=== PATIENT | female | born 1960 | race Hispanic/Latino ===

== ENCOUNTER 2017-08-20 06:00 | Observation (INO) | payer OTHER ==
[2017-08-19 15:40] VITALS: BP 112/70
[2017-08-19 15:43] LABS: BASOPHILS % (AUTO) 0.3 % (0.0-5.0); EOSINOPHILS % (AUTO) 1.7 % (0.0-8.0); HEMATOCRIT 38.1 % (36-48); LYMPHOCYTES % (AUTO) 22.6 % (21.0-51.0); MEAN CORPUSCULAR HEMOGLOBIN 29.2 pg (27.0-33.0); MEAN CORPUSCULAR HGB CONC 34.9 g/dL (32.0-36.0); MEAN CORPUSCULAR VOLUME 83.7 fL (79-99); NEUTROPHILS % (AUTO) 67.4 % (40.0-77.0); PLATELET COUNT (AUTO) 211 K/uL (130-400); RED BLOOD CELL COUNT(AUTO) 4.55 MIL/uL (4.00-5.50); RED CELL DISTRIBUTION WIDTH 14.7 % (11.0-15.5); WHITE BLOOD COUNT (AUTO) 8.7 K/uL (4.8-10.8)
[~2017-08-20] VITALS: Ht 165.1 cm; Wt 92.8 kg
[2017-08-20] VITALS (24 sets, daily range): BP systolic 115–157; BP diastolic 66–89
[~2017-08-20 06:00] MED LIST: AMIT10TA6 PO; BIOT10005 PO; CETI10TA57 PO; CHOL500051 PO; HYDR200T4 PO; HYDR25TA PO; LACTATED RINGERS 1000ML 1,000 ML IV SCH; LEVO100T12 PO; MONT10TA24 PO; OMEG1CAP67 PO
[2017-08-20] MEDS: CEFAZOLIN SODIUM 1 GM VIAL IVP SCH ×2 (08:30→09:10)
[2017-08-20] MEDS ORDERED: SCOPOLAMINE HYDROBROMIDE 1 EACH ADH..PATCH TD ONE (09:01)
[2017-08-20] MEDS ORDERED: LIDOCAINE PF 2% 5ML ABBOJECT ONE (09:06)
[2017-08-20] MEDS ORDERED: DEXAMETHASONE SOD PHOSPHATE 10MG/ML 1ML VIAL ONE (09:06)
[2017-08-20] MEDS ORDERED: PROPOFOL 10 MG/ML 20ML VIAL IV ONE (09:06)
[2017-08-20] MEDS ORDERED: FENTANYL CITRATE PF 50 MCG/1 ML 2ML VIAL ONE (09:06)
[2017-08-20] MEDS ORDERED: MIDAZOLAM HCL 1 MG/ML 2ML VIAL ONE (09:06)
[2017-08-20] MEDS ORDERED: GLYCOPYRROLATE 0.2 MG/ML 5 ML VIAL ONE (09:06)
[2017-08-20] MEDS ORDERED: PROMETHAZINE HCL 25 MG/ML 1ML AMPULE IM ONE (10:53)
[2017-08-20] MEDS ORDERED: MEPERIDINE-PF 25 MG/ML SYG ONE (11:05)
[2017-08-20] MEDS ORDERED: DOCUSATE SODIUM 100 MG CAP PO PRN (12:15)
[2017-08-20] MEDS ORDERED: PROMETHAZINE HCL 25 MG/ML 1ML AMPULE IM PRN ×2 (12:15)
[2017-08-20] MEDS ORDERED: BISACODYL 10 MG SUPP.RECT RC PRN (12:15)
[2017-08-20] MEDS ORDERED: MEPERIDINE-PF 75 MG/ML SYG ONE (12:20)
[2017-08-20] MEDS: DEXTROSE 5 %-0.45 % NACL 1,000 ML IV PRN ×2 (12:24→20:35)
[2017-08-20] MEDS: MEPERIDINE-PF 75 MG/ML SYG IM PRN ×2 (12:25→17:55)
[2017-08-21 03:23] VITALS: BP 144/88
[2017-08-21] MEDS: DEXTROSE 5 %-0.45 % NACL 1,000 ML IV PRN (03:43)
[2017-08-21 05:32] LABS: HEMATOCRIT 41.3 % (36-48); MEAN CORPUSCULAR HEMOGLOBIN 28.4 pg (27.0-33.0); MEAN CORPUSCULAR HGB CONC 33.9 g/dL (32.0-36.0); MEAN CORPUSCULAR VOLUME 83.9 fL (79-99); PLATELET COUNT (AUTO) 239 K/uL (130-400); RED BLOOD CELL COUNT(AUTO) 4.92 MIL/uL (4.00-5.50); RED CELL DISTRIBUTION WIDTH 14.6 % (11.0-15.5); WHITE BLOOD COUNT (AUTO) 13.8 K/uL (4.8-10.8)
[2017-08-21] MEDS ORDERED: LEVOTHYROXINE 100 MCG TABLET PO SCH (06:30)
[2017-08-21 07:37] VITALS: BP 151/76
[2017-08-21] MEDS: SIMETHICONE 80 MG TAB.CHEW PO PRN ×2 (08:06→14:16)
[2017-08-21] MEDS: IBUPROFEN 600 MG TABLET PO PRN ×2 (08:07→14:17)
[2017-08-21 11:23] VITALS: BP 146/79
== END 2017-08-21 15:45 | disposition home or self-care (01) ==
LOC: SUH 06:00 → DAH 06:00 → SUH 06:01 → WSH 06:01
PROVIDERS: ADMIT Obstetrics & Gynecology; ATTEND Obstetrics & Gynecology
DX: D25.9 Leiomyoma of uterus, unspecified (principal); N85.2 Hypertrophy of uterus; N83.291 Other ovarian cyst, right side; K46.9 Unspecified abdominal hernia without obstruction or gangrene; N95.0 Postmenopausal bleeding; Z90.710 Acquired absence of both cervix and uterus; E03.9 Hypothyroidism, unspecified; M32.9 Systemic lupus erythematosus, unspecified; Z98.51 Tubal ligation status
CPT/HCPCS: 36415 ×2; 58263; 84703; 85025; 85027; 86850; 86900; 86901; 88305; 88307; 96372; A4218 ×2; A4344; A4510 ×2; A4606; G0378 ×34; J0690; J1100; J2001; J2175 ×3; J2250; J2550 ×2; J2704; J3010; J3490; J7120